=== PATIENT | female | born 1950 | race Caucasian/White ===

== ENCOUNTER → 2017-01-18 | Outpatient (CLI) | payer OTHER ==
[~2017-01-18] MED LIST: CHOL1CAP63 PO; CYM30 PO; ESOM1CAP34 PO; ROSU40TA PO; VALS-58 PO; ZOLP10TA6 PO
[2017-01-18 11:24] LABS: ESTIMATED AVERAGE GLUCOSE 146 mg/dl; HA1C FLAG Normal (Normal)
== END | disposition home or self-care (01) ==
LOC: C.LABBC 07:26
PROVIDERS: ATTEND Physician Assistant
DX: E11.9 Type 2 diabetes mellitus without complications (principal)

== ENCOUNTER → 2017-02-08 | Outpatient (CLI) | payer OTHER ==
--- NOTE | 2017-02-08 11:46 | DIAGNOSTIC IMAGING REPORT ---
SOFT TISS HEAD/NECK-THYROID CLINICAL HISTORY: 66 years-old Female with NON TOXIC MULTI NODULAR GOITER. COMPARISON: Thyroid ultrasound 01/23/2016 TECHNIQUE: Multiple real time sonographic images of the thyroid were obtained accessing m[place]o scale appearance and color doppler flow. FINDINGS: MEASUREMENTS: Right lobe: 4.3 x 2.2 x 1.8 cm Left lobe: 4.3 x 1.7 x 1.6 cm Isthmus: 0.2 cm PARENCHYMA: The thyroid parenchymal echotexture is mildly heterogeneous. NODULES: Multiple right-sided thyroid nodules are again seen. Largest nodule on the right is hypoechoic measuring 1.2 cm containing echogenic internal foci suggesting colloid. No significant change from prior study. The largest nodule overall is again in the mid pole left thyroid, 1.6 x 1.1 x 1.3 cm, previously 1.9 x 1.3 x 1.1 cm on study dated 01/23/2016. This lesion is primarily solid with small internal cystic foci and non-shadowing internal echogenic foci suggesting colloid. Multiple additional smaller nodules are seen bilaterally. IMPRESSION: 1. Multinodular thyroid is again seen with largest nodule in the mid pole left thyroid measuring up to 1.6 cm. This likely contains internal colloid and has not significantly changed from the study dated 01/23/2016. 2. Multiple additional bilateral nodules of the thyroid without new or enlarging suspicious nodules identified. The above report was generated using voice recognition software. It may contain grammatical, syntax or spelling errors. Electronically signed by: Thee Kellogg M.D. 02/08/2017 11:45 AM Dictated Date/Time: 02/08/2017 11:40 AM
== END | disposition home or self-care (01) ==
PROVIDERS: ATTEND Physician Assistant
DX: E04.2 Nontoxic multinodular goiter (principal)

== ENCOUNTER → 2017-04-12 | Outpatient (CLI) | payer OTHER | END | disposition home or self-care (01) | LOC: C.LABBC 13:20 | PROVIDERS: ATTEND Plastic Surgery | DX: Z01.818 Encounter for other preprocedural examination (principal); L90.8 Other atrophic disorders of skin; H02.839 Dermatochalasis of unspecified eye, unspecified eyelid ==

== ENCOUNTER → 2017-09-13 | Outpatient (CLI) | payer OTHER ==
[2017-09-13 16:59] LABS: CREATININE RANDOM URINE 25.5 mg/dl
[2017-09-13 17:38] LABS: ALBUMIN 3.8 gm/dl (3.4-5.0); ALT/SGPT 23 U/L (12-78); BLOOD UREA NITROGEN 18 mg/dl (7-18); CALCIUM 9.6 mg/dl (8.5-10.1); CARBON DIOXIDE 25 mmol/L (21-32); CHOLESTEROL 163 mg/dl (0-200); GLUCOSE 121 mg/dl (70-99); POTASSIUM 4.8 mmol/L (3.5-5.1); SODIUM 135 mmol/L (136-145)
[2017-09-13 17:47] LABS: ALKALINE PHOSPHATASE 60 U/L (45-117); AST/SGOT 12 U/L (15-37); LDL CHOLESTEROL CALCULATED 39 mg/dl; TOTAL PROTEIN 7.1 gm/dl (6.4-8.2)
[2017-09-14 06:27] LABS: HEMOGLOBIN A1C 8.1 % (4.5-5.6)
== END | disposition home or self-care (01) ==
LOC: C.LABBC 13:20
PROVIDERS: ATTEND Physician Assistant
DX: E78.5 Hyperlipidemia, unspecified (principal); R80.9 Proteinuria, unspecified; E11.9 Type 2 diabetes mellitus without complications